=== PATIENT | female | born 1980 | race Caucasian/White ===

== ENCOUNTER 2017-01-25 15:06 | Emergency (ER) | payer OTHER, BC ==
[~2017-01-25] VITALS: Ht 175.3 cm; Wt 71.3 kg
[~2017-01-25 15:06] MED LIST: ALBUAER INH; PERM1CRE TOP
[2017-01-25 15:20] VITALS: BP 141/82; PULSE 81; TEMP 36.7; O2SAT 97; Ht 175.3 cm; Wt 71.3 kg
[2017-01-25] MEDS ORDERED: PRVHFAIN INH (15:40)
--- NOTE | 2017-01-25 15:44 | EMERGENCY ROOM VISIT NOTE ---
ED Visit Note First contact with patient: 15:26 CHIEF COMPLAINT: Body Fluid exposure HPI: This 36-year-old female presents to the Emergency Department ambulatory for evaluation of a body fluid exposure that occurred at 12:15. Patient was at work at [employer] and accidentally stuck herself in the right thumb with a used insulin needle.. The wound has already been cleansed. Bleeding is controlled. They deny numbness, tingling, or loss of motion. Source patient is known. She states that has cared for this patient for the last 1 year and she does not believe that he has any concerning illnesses. They have had the hepatitis B. vaccination, and titers are unknown. They believe their tetanus is up-to-date. Pain is 0/10. ALLERGIES: Vitamin E MEDICATIONS: Patient denies PMH: Patient denies SOCIAL HISTORY: The patient lives locally. She is employed Physical Exam: VITALS: Nursing notes reviewed and vitals are stable. GENERAL: This is a 36-year-old female, in no acute distress, well developed, well nourished. SKIN: Warm and dry with good turgor. There are no abrasions. There is a solitary puncture zoya present at the right thumb. Bleeding is controlled. No edema. Capillary refill is 2+. MUSCULOSKELETAL: Patient has full active range of motion of the thumb. Normal strength. NEURO: Gross sensation is intact across the fingers. ED COURSE: I examined the patient. Option of HIV, hepatitis C, and hepatitis B testing was discussed with the patient. The risks, benefits, purpose, and limitations of the tests were explained to the patient and all of their questions were answered. They elected to proceed. I did perform pretest counseling and the appropriate consent forms were signed. Patient was given information on prevention of exposure and transmission as well as hospital confidentiality. Blood exposure handout was provided. Patient elected to decline HIV prophylaxis at this time. They will follow-up with employee health. Wound care instructions were provided. Impression: Body fluid exposure Plan: Follow up with employee health for further evaluation, treatment, and test results. Current/Historical Medications Scheduled PRN Albuterol (Ventolin Hfa), 2 PUFFS INH QID PRN for SOB/Wheezing Allergies Coded Allergies: Vitamin E (Verified Allergy, Intermediate, Skin peels, 01/25/17) Vital Signs Date Time Temp Pulse Resp B/P Pulse Ox O2 Delivery O2 Flow Rate FiO2 01/25/17 15:20 36.7 81 18 141/82 97 Room Air Laboratory Results Test 01/25/17 16:20 Hepatitis B Surface Antibody NEG Hepatitis C Antibody NEG (NEG) HIV (1&2) Ab and P24 Ag, 4th Gener NEG (NEG) Departure Information Impression Primary Impression: Employee exposure to body fluids Dispostion Home / Self-Care Condition GOOD Referrals No Doctor, Assigned (PCP) Alfredo Bedolla M.D. Patient Instructions ED Body Fluid Exp HC Worker, bookjam Additional Instructions Follow up with employee health for further evaluation, treatment, and test results.
[2017-01-25 17:07] LABS: HEPATITIS B AB NEG
== END 2017-01-25 16:20 | disposition home or self-care (01) ==
LOC: C.EDB 15:08 → C.EDD 16:20
DX: Z77.21 Contact with and (suspected) exposure to potentially hazardous body fluids (principal)